=== PATIENT | female | born 1975 | race Caucasian/White ===

== ENCOUNTER → 2017-06-23 | Outpatient (CLI) | payer OTHER | LOC: FIMAGING 11:08 | PROVIDERS: ATTEND Family Medicine | DX: Z12.31 Encounter for screening mammogram for malignant neoplasm of breast (principal) | CPT/HCPCS: G0202 ==

== ENCOUNTER → 2018-07-04 | Outpatient (CLI) | payer OTHER | END | disposition home or self-care (01) | LOC: FIMAGING 14:57 | PROVIDERS: ATTEND Obstetrics & Gynecology | DX: Z12.31 Encounter for screening mammogram for malignant neoplasm of breast (principal) ==